=== PATIENT | female | born 1955 | race Caucasian/White ===

== ENCOUNTER 2016-12-17 09:36 | Emergency (ER) | payer BC ==
[2016-12-17] MEDS ORDERED: LORazepam TAB(*) 1 MG PO ONE (11:48)
[2016-12-17] MEDS ORDERED: Ketorolac INJ* 60 MG/2 ML VIAL IM ONE (11:48)
--- NOTE | 2016-12-17 12:39 | RAD ---
INDICATION: Bilateral neck and upper back pain post fall yesterday evening. COMPARISON: None. TECHNIQUE: Multidetector CT images foramen magnum to lung apices without contrast. Multiplanar reformation. REPORT: Negative for vertebral body or posterior element fracture at any level from the craniocervical junction through the cervicothoracic junction. Normal alignment. The disc spaces are within normal limits for age. Multilevel mild facet joint osteoarthritis most prominent at C2-C3 on the LEFT. No CT evidence for acquired spinal stenosis. Unremarkable paravertebral soft tissues. IMPRESSION: Negative for traumatic cervical spine injury.
--- NOTE | 2016-12-17 12:50 | RAD ---
Indication: Back pain. CT of the thoracic spine was obtained in the axial plane. Sagittal and coronal reconstructed images were obtained. The vertebral bodies appear normal in height. No evidence of compression fracture is noted. Disc space narrowing is noted T4-T5, T5-T6, T6-T7, T7-T8, T8-T9 and T9-T10 with osteophyte formation right anterolateral aspect of the vertebral bodies at these levels. No compression is noted. No hernias are noted. Vacuum disc phenomenon is noted at T11-T12. Spinous processes are unremarkable. IMPRESSION: No fracture of the thoracic spine is noted. Multilevel degenerative disc disease is noted.
--- NOTE | 2016-12-17 13:17 | ED ---
Edenilson Shelley Benjamin, scribed for Osbaldo Khoury MD on 12/17/16 at 1203 . Back Pain - HPI Summary HPI Summary: 61yo female c/o back pain after a mechanical fall yesterday. Upon falling, pt hit her midupper back against a ramp. Pt reports midline back pain and right shoulder and neck pain. Pt is diabetic. Does not have chronic back pain. Denies SOB, funny sensations, or incontinence. - History of Current Complaint Chief Complaint: EDBackInjuryPain Stated Complaint: FALL / BACK PAIN Time Seen by Provider: 12/17/16 11:03 Hx Obtained From: Patient Onset/Duration: Sudden Onset, Lasting Minutes Onset/Duration: Started Days Ago - 1 day ago, Traumatic, Still Present Timing: Constant Back Pain Location: Is Diffuse - mid upper back Severity Initially: Severe Severity Currently: Severe Pain Intensity: 9 Pain Scale Used: 0-10 Numeric Aggravating Symptom(s): Movement Alleviating Symptom(s): Rest Associated Signs And Symptoms: Positive: Bruising - mid upper back - Allergies/Home Medications Allergies/Adverse Reactions: Allergies Allergy/AdvReac Type Severity Reaction Status Date / Time Hydrocodone [From Vicodin] Allergy Severe severe abd Verified 08/01/13 08:28 pain Liraglutide [From Victoza] Allergy Severe pancreatitis Verified 08/01/13 08:28 liver problems Phenol [From Victoza] Allergy Severe pancreatitis Verified 08/01/13 08:28 liver problems Propylene Glycol Allergy Severe pancreatitis Verified 08/01/13 08:28 [From Victoza] liver problems PMH/Surg Hx/FS Hx/Imm Hx Endocrine/Hematology History: Reports: Hx Diabetes Respiratory History: Reports: Hx Asthma Infectious Disease History: No Infectious Disease History: Denies: Traveled Outside the [place] in Last 30 Days - Family History Known Family History: Positive: Cardiac Disease - father, Diabetes - grandfathers, Other - mother with breast/esophageal ca - Social History Alcohol Use: None Substance Use Type: Reports: None Smoking Status (MU): Former Smoker Review of Systems Constitutional: Negative Eyes: Negative ENT: Negative Cardiovascular: Negative Respiratory: Negative Gastrointestinal: Negative Genitourinary: Negative Positive: Myalgia - back pain, shoulder pain, neck pain Positive: Bruising - mid upper back Neurological: Negative Psychological: Normal All Other Systems Reviewed And Are Negative: Yes Physical Exam Triage Information Reviewed: Yes Vital Signs On Initial Exam: Initial Vitals Temp Pulse Resp BP Pulse Ox 98.9 F 89 20 157/71 100 12/17/16 09:38 12/17/16 09:38 12/17/16 09:38 12/17/16 09:38 12/17/16 09:38 Vital Signs Reviewed: Yes Appearance: Positive: Well-Appearing, No Pain Distress, Well-Nourished Skin: Positive: Warm, Skin Color Reflects Adequate Perfusion, Dry Head/Face: Positive: Normal Head/Face Inspection Eyes: Positive: Normal ENT: Positive: Normal ENT inspection Respiratory/Lung Sounds: Positive: Clear to Auscultation, Breath Sounds Present Cardiovascular: Positive: RRR Abdomen Description: Positive: Nontender, No Organomegaly, Soft Bowel Sounds: Positive: Present Musculoskeletal: Positive: Normal, Strength/ROM Intact Neurological: Positive: Sensory/Motor Intact, Alert, Oriented to Person Place, Time, CN Intact II-III, Reflexes Intact Psychiatric: Positive: Affect/Mood Appropriate Diagnostics - Vital Signs Vital Signs Temp Pulse Resp BP Pulse Ox 12/17/16 09:38 98.9 F 89 20 157/71 100 - Laboratory Lab Statement: Any lab studies that have been ordered have been reviewed, and results considered in the medical decision making process. - CT T-spine CT CT Interpretation: Positive (See Comments) - DDD, but no Fx CT Interpretation Completed By: Radiologist C-spine CT CT Interpretation: Positive (See Comments) CT Interpretation Completed By: Radiologist Back Pain Course/Dx - Course Course Of Treatment: Beatriz Calderón presented about 24 hours after a mechanical fall onto her back. She had a lot of tenderness and ecchymosis over her upper spine and some tenderness of her para-cervical area. Ct scans were negative for acute bony injury and she got significant releif from anti- inflammatories and mucle relaxants here. She will be treated accordingly as an outpatient. - Diagnoses Provider Diagnoses: Upper back strain, Contusion of upper back Discharge - Discharge Plan Condition: Stable Disposition: HOME Prescriptions: Ondansetron ODT TAB* [Zofran Odt TAB*] 4 mg PO Q6H PRN #20 tab.odt PRN Reason: Nausea oxyCODONE/Acetamin 5/325 MG* [Percocet 5/325 TAB*] 1 tab PO Q6H PRN #20 tab MDD 4 PRN Reason: Pain Patient Education Materials: Contusion in Adults (ED), Back Pain (ED) Referrals: Ana WESTBROOK,Wilson Goss [Primary Care Provider] - The documentation as recorded by the bipinibEdenilson briones Benjamin accurately reflects the service I personally performed and the decisions made by me, Osbaldo Khoury MD.
[2016-12-17 13:21] VITALS: BP 134/84
== END 2016-12-17 13:19 | disposition home or self-care (01) ==
LOC: ED 09:36
DX: S29.012A Strain of muscle and tendon of back wall of thorax, initial encounter (principal); S20.229A Contusion of unspecified back wall of thorax, initial encounter; M54.9 Dorsalgia, unspecified; M25.511 Pain in right shoulder; M54.2 Cervicalgia; Z87.891 Personal history of nicotine dependence; W19.XXXA Unspecified fall, initial encounter; Y93.9 Activity, unspecified; Y92.9 Unspecified place or not applicable; Y99.9 Unspecified external cause status
CPT/HCPCS: 72125; 72128; 96372; 99282; J1885